=== PATIENT | female | born 1990 | race Two or more races ===

== ENCOUNTER → 2022-03-23 | Outpatient (CLI) | payer OTHER | END | disposition home or self-care (01) | LOC: TOM 15:21 | DX: G45.9 Transient cerebral ischemic attack, unspecified (principal) ==

== ENCOUNTER 2022-04-03 08:49 | Outpatient (CLI) | payer OTHER | END 2022-04-03 09:03 | disposition home or self-care (01) | LOC: RX STUDY 08:49 | PROVIDERS: ATTEND Obstetrics & Gynecology | DX: N70.13 Chronic salpingitis and oophoritis (principal) ==

== ENCOUNTER 2023-03-16 12:16 | Emergency (ER) | payer OTHER ==
[~2023-03-16] VITALS: Ht 172.7 cm; Wt 88.0 kg
== END 2023-03-16 17:14 | disposition home or self-care (01) ==
LOC: ER 12:16
DX: R10.2 Pelvic and perineal pain (principal); D25.9 Leiomyoma of uterus, unspecified

== ENCOUNTER 2023-05-22 09:34 | Emergency (ER) | payer OTHER ==
[~2023-05-22] VITALS: Ht 175.3 cm; Wt 88.9 kg
[2023-05-22] MEDS ORDERED: DICLOFENAC SODI75 MG PO (12:11)
== END 2023-05-22 12:19 | disposition home or self-care (01) ==
LOC: ER 09:34
DX: S93.491A Sprain of other ligament of right ankle, initial encounter (principal); X50.1XXA Overexertion from prolonged static or awkward postures, initial encounter; Y93.68 Activity, volleyball (beach) (court); Y92.89 Other specified places as the place of occurrence of the external cause

== ENCOUNTER 2023-07-04 16:25 | Inpatient (IN) | payer OTHER ==
[~2023-07-04] VITALS: Ht 172.7 cm; Wt 88.9 kg
[~2023-07-04 16:25] MED LIST: DICLOFENAC SODI75 MG PO
[2023-07-04 18:37] LABS: HEMATOCRIT 38.1 % (36.0-45.00); HEMOGLOBIN 12.1 g/dL (12.0-15.00); MEAN CELL VOLUME 89.3 fL (80.00-100.00); MEAN CORPUSCULAR HEMOGLOBIN 28.4 pg (27.00-32.0); MEAN CORPUSCULAR HGB CONC 31.8 g/dl (32.0-36.0); PLATELET COUNT 215 K/uL (150-450); RED BLOOD COUNT 4.27 M/uL (4.00-6.00); RED CELL DISTRIBUTION WIDTH 13.6 % (11.5-14.5)
[2023-07-04 18:55] LABS: CALCIUM 9.4 mg/dL (8.5-10.1); CREATININE SERUM 0.88 mg/dL (0.55-1.02); GFR 74.95; POTASSIUM 3.62 mEq/L (3.5-5.1)
[2023-07-04 19:58] LABS: URINE APPEARANCE Clear; URINE BILIRRUBIN Negative (NEGATIVE); URINE BLOOD Small; URINE COLOR Dark Yellow; URINE GLUCOSE Negative (NEGATIVE); URINE LEUKOCYTE Large; URINE NITRATE Positive; URINE PROTEIN Trace (NEGATIVE)
[2023-07-04 20:01] LABS: URINE BACTERIA 4325.1 uL (0.0-1933); URINE EPITHELIAL CELLS 29.9 uL (0.0-38.8); URINE RBC 13.3 uL (0.0-20.8); URINE WBC 140.3 uL (0.0-23.2)
[2023-07-06 10:17] LABS: HEMATOCRIT 35.5 % (36.0-45.00); HEMOGLOBIN 11.8 g/dL (12.0-15.00); MEAN CELL VOLUME 88.2 fL (80.00-100.00); MEAN CORPUSCULAR HEMOGLOBIN 29.3 pg (27.00-32.0); MEAN CORPUSCULAR HGB CONC 33.2 g/dl (32.0-36.0); PLATELET COUNT 198 K/uL (150-450); RED BLOOD COUNT 4.03 M/uL (4.00-6.00); RED CELL DISTRIBUTION WIDTH 13.6 % (11.5-14.5)
[2023-07-06 11:29] LABS: INR 1.04; PARTIAL THROMBOPLASTIN TIME 30.9 SECONDS (22.0-34.0); PROTHROMBIN TIME 10.9 SECONDS (9.0-11.5)
[2023-07-08 19:45] LABS: HEMATOCRIT 36.7 % (36.0-45.00); HEMOGLOBIN 11.8 g/dL (12.0-15.00); MEAN CELL VOLUME 88.1 fL (80.00-100.00); MEAN CORPUSCULAR HEMOGLOBIN 28.4 pg (27.00-32.0); MEAN CORPUSCULAR HGB CONC 32.3 g/dl (32.0-36.0); PLATELET COUNT 222 K/uL (150-450); RED BLOOD COUNT 4.16 M/uL (4.00-6.00); RED CELL DISTRIBUTION WIDTH 13.6 % (11.5-14.5)
== END 2023-07-10 16:13 | disposition home or self-care (01) | DRG 661 ==
LOC: ER 16:25 → SEC-K 07-05 09:51 → OB/GYN 07-05 09:51
PROVIDERS: ADMIT Obstetrics & Gynecology; ATTEND Obstetrics & Gynecology
PROC: 0T788DZ Dilation of Bilateral Ureters with Intraluminal Device, Via Natural or Artificial Opening Endoscopic (ICD-10-PCS; principal; 2023-07-05)
PROC: 0UB90ZZ Excision of Uterus, Open Approach (ICD-10-PCS; 2023-07-05)
PROC: 0UB00ZZ Excision of Right Ovary, Open Approach (ICD-10-PCS; 2023-07-05)
DX: N12 Tubulo-interstitial nephritis, not specified as acute or chronic (principal); D25.2 Subserosal leiomyoma of uterus; N80.101 Endometriosis of right ovary, unspecified depth; Z20.822 Contact with and (suspected) exposure to COVID-19; N13.1 Hydronephrosis with ureteral stricture, not elsewhere classified

== ENCOUNTER 2025-06-10 21:10 | Emergency (ER) | payer OTHER ==
[~2025-06-10] VITALS: Ht 172.7 cm; Wt 81.6 kg
[2025-06-10 21:18] VITALS: BP 132/90; O2SAT 98
[2025-06-10] MEDS ORDERED: CEFTRIAXONE SODIUM 1,000 MG VIAL ONE (21:33)
[2025-06-10] MEDS ORDERED: CEFTRIAXONE SODIUM 1,000 MG VIAL IM ONE (21:45)
[2025-06-10 21:53] LABS: URINE APPEARANCE Cloudy; URINE BILIRRUBIN Negative (NEGATIVE); URINE BLOOD Moderate; URINE COLOR Yellow; URINE GLUCOSE Negative (NEGATIVE); URINE KETONE Trace (NEGATIVE); URINE LEUKOCYTE Small; URINE NITRATE Negative; URINE PROTEIN Trace (NEGATIVE); URINE UROBILINOGEN 1.0 E.U./dl
[2025-06-10 21:57] LABS: URINE BACTERIA 2991.4 uL (0.0-1933); URINE EPITHELIAL CELLS 65.5 uL (0.0-38.8); URINE RBC 106.9 uL (0.0-20.8); URINE WBC 180.1 uL (0.0-23.2)
[2025-06-10 22:14] LABS: URINE CAST 0.29 uL (0.0-1.40); URINE MUCUS HEAVY
[2025-06-10] MEDS ORDERED: CEPHALEXIN500 MG PO (22:39)
[2025-06-10] MEDS ORDERED: PYRIDIUM200 MG PO (22:39)
== END 2025-06-10 22:52 | disposition home or self-care (01) ==
LOC: ER 21:10
PROVIDERS: General Practice
DX: N39.0 Urinary tract infection, site not specified (principal); R30.0 Dysuria